=== PATIENT | male | born 1965 | race Caucasian/White ===

== ENCOUNTER 2020-09-25 11:23 | Emergency (ER) | payer MEDICAID, SELFPAY ==
[2020-09-25 11:23] VITALS: BP 128/81; PULSE 83; RESP 17; TEMP 36.6; O2SAT 98; BMI 24.5
--- NOTE | 2020-09-25 11:43 | NURSING ---
NO OLD EKGS
--- NOTE | 2020-09-25 11:50 | NURSING ---
NO OLD EKGS
--- NOTE | 2020-09-25 11:51 | EKG12_ITS ---
Test Reason : CP Blood Pressure : / mmHG Vent. Rate : 078 BPM Atrial Rate : 078 BPM P-R Int : 148 ms QRS Dur : 090 ms QT Int : 368 ms P-R-T Axes : 067 054 052 degrees QTc Int : 419 ms Normal sinus rhythm Normal ECG Confirmed by ERNA PABON, MARCO A ([id number]), editorial clerk JOELLEN JORDAN ([id number]) on 10/02/2020 9:11:10 AM Referred By: PEG Confirmed By:JAMI UMANZOR MD
--- NOTE | 2020-09-25 11:52 | ED.VIS.GEN ---
History of Present Illness Chief Complaint: Chest Pain Informant: Patient Narrative: 54-year-old male presenting with chest pain which is been intermittent for about a week. He describes it as a bloating feeling in his chest. He states he gets radiation to his left arm sometimes and it feels tingly. There is no change with exertion. He does not feel lightheaded, dizzy. He does not have any shortness of breath. No exposure to Covid?19. No fevers, chills, cough, nausea, vomiting. No history of DVT/PE. Patient states that he has a distant history of prediabetes but states that he has not seen a PCP in some time. No cardiac history and states he has never had any kind of stress test Past Medical History - Allergies and Home Meds Allergies/Adverse Reactions: Allergies No Known Allergies Allergy (Verified 09/25/20 11:23) Primary Care Physician: NOT,DEFINED [NON-STAFF] - Prior records reviewed: Yes Past Medical History: - - Prediabetic Surgical History: no surgical history, noncontributory Lives: Spouse/ Significant Other Smoking Status: Current every day smoker Alcohol: None Drugs: None Review of Systems General: Denies: Chills, Fever, Sweats Eyes: Denies: Visual changes - bilaterally, Diplopia ENT: Denies: Rhinorrhea, Sore throat Cardiovascular: Reports: Chest pain. Denies: Palpitations, Heart racing Respiratory: Denies: Dyspnea, Cough, Sputum, Dyspnea on exertion Gastrointestinal: Denies: Abdominal pain, Nausea, Vomiting Genitourinary: Denies: Dysuria, Hematuria, Frequency Musculoskeletal: Denies: Back pain, Extremity Pain Skin: Denies: Rash, Wounds Neurological: Reports: Headache, Parasthesia - Intermittent in left arm with chest pain. Psych: Denies: Depression, Anxiety, Suicidal thoughts, Suicidal ideations, -, - Physical Exam Vital Signs/Narrative: Vital Signs Temp Pulse Resp BP Pulse Ox 09/25/20 11:23 97.8 F 83 17 128/81 H 98 Inital Vital Signs reviewed: Yes General: Well nourished, No Acute Distress Head: Normocephalic, Atraumatic Eyes: Perrl, EOMI. Negative for: Pale conjunctiva ENT: Moist mucous membranes, No rhinorrhea Cardiovascular: Regular rate, Regular rhythm, No murmurs Respiratory: No distress, CTA bilaterally, Chest nontender Abdomen: Soft, Nontender Extremities: Nontender, No edema Skin: Normal color, No rash. Negative for: Cyanosis, Diaphoresis Neurological: Alert, Oriented x3, Cranial nerves II-XII grossly intact Psychological: Normal affect, Normal Mood Diagnostic/Tx/Re-eval - Rhythm Strip Rhythm Strip: Sinus Rhythm Rate: 78 - EKG Initial EKG Interpretation: Sinus Rhythm, No Acute Injury Pattern, - - WV interval 148 ms QRS duration 90 ms QTC 419 ms - Medical Decision Making Patient presents with intermittent chest pain with radiation to the left arm. He states that it does not change with exertion. Initial EKG interpreted by myself shows a normal sinus rhythm without signs of ischemic change. Patient's chest x-ray is interpreted by myself and radiologist as negative for acute process. Patient's lab work is unremarkable and initial troponin is negative. Heart score is 2. D-dimer is negative. Patient will be signed out to incoming ED doc for follow-up on delta troponin and delta EKG. I feel likely this patient will be discharged home. Impression: 1. Chest pain ED Disposition - Plan for ED Patient: Disposition: Home or Assisted Living Instructions: ED Chest Pain, Uncertain Cause Referrals: NOT,DEFINED [NON-STAFF] - Fast,Brielle, DO [NON-STAFF] -
[2020-09-25 12:03] LABS: Absolute Lymphocyte Count 2.47 X10^3/uL (0.83-4.51); Absolute Neutrophil Count 5.7 X10^3/uL (2.0-7.7); Basophil# 0.03 X10^3/uL; Basophil% 0.3 % (0-1); Eosinophil# 0.14 X10^3/uL; Eosinophils% 1.5 % (0-5); Hematocrit 43.2 % (40-54); Hemoglobin 15.4 g/dL (13.0-16.5); Lymphocyte # 2.47 X10^3/ul (4.0); Lymphocyte % 26.1 % (19-41); Mean Corp Hgb Conc 35.6 g/dL (32-36); Mean Corpuscular Hgb 34.5 pg (27.0-32.0); Mean Corpuscular Volume 96.6 fL (80-94); Mean Platelet Vol. 9.3 fl (6.2-12.0); Monocyte# 0.99 X10^3/uL; Monocyte% 10.5 % (0-10); NRBC Flagged by Analyzer 0 % (0-5); Neutrophil # 5.67 X10^3/uL (2.7-7.7); Neutrophil % 59.8 % (47-70); Platelet Count 211 K/mm3 (150-450); RBC Distribution Width CV 13.3 % (11.6-14.6); RBC Distribution Width SD 46.5 fl (35.1-43.9); Red Blood Count 4.47 M/mm3 (4.6-6.2); White Blood Count 9.5 K/mm3 (4.4-11.0)
--- NOTE | 2020-09-25 12:10 | RAD_ITS ---
STUDY: X-RAY CHEST REASON FOR EXAM: Male, 55 years old. CHEST PAIN TECHNIQUE: Single AP portable view of the chest. COMPARISON: None. FINDINGS: The lungs are clear and expanded. There is no demonstrated pleural abnormality. Normal size heart. Normal mediastinum and rikki. Normal visualized pulmonary arteries. Normal visualized aortic arch and descending thoracic aorta. Normal visualized thoracic spine. There is degenerative osteoarthritis of the bilateral shoulders. There is no demonstrated abnormality of the visualized soft tissue structures of the upper abdomen. RAD/Chest 1 View (Portable) IMPRESSION: Degenerative changes, as described above. No demonstrated acute cardiopulmonary process. Years Electronically Signed: Umesh Beaulieu, at 13:19 EST Tel , Service support ,
[2020-09-25 12:14] LABS: D-Dimer Quantitative (DVT/PE) <= 0.27 FEU/ug/m (0.27-0.49)
[2020-09-25 12:18] LABS: Anion Gap 6 (5-15); BUN 15 mg/dL (7-18); BUN/Creat Ratio 18.9 RATIO (10-20); Calcium,Total 8.6 mg/dL (8.5-10.1); Chloride 107 mmol/L (98-107); Creatinine, Serum 0.79 mg/dL (0.70-1.30); EST Glomerular Filtration Rate 108 mL/min (>60); Est Glom Filt Rate - Afr Amer 131 mL/min (>60); Estimated Creatinine Clearance 97.58 ml/min; Glucose 99 mg/dL (74-106); Potassium 3.9 mmol/L (3.5-5.1); Sodium Level 139 mmol/L (136-145)
[2020-09-25 13:18] VITALS: BP 109/72; PULSE 61; RESP 13; O2SAT 98
--- NOTE | 2020-09-25 14:45 | EKG12_ITS ---
Test Reason : REPEAT EKG Blood Pressure : / mmHG Vent. Rate : 063 BPM Atrial Rate : 063 BPM P-R Int : 138 ms QRS Dur : 096 ms QT Int : 400 ms P-R-T Axes : 044 057 047 degrees QTc Int : 409 ms Normal sinus rhythm Normal ECG Confirmed by ERNA PABON, MARCO A ([id number]), editor sound JOELLEN JORDAN ([id number]) on 10/02/2020 9:11:20 AM Referred By: ARACELIS Confirmed By:JAMI UMANZOR MD
[2020-09-25 14:46] VITALS: BP 117/84; PULSE 70; RESP 17; O2SAT 97
[2020-09-25 15:22] VITALS: BP 117/84; PULSE 84; RESP 16; O2SAT 98
== END 2020-09-25 15:23 | disposition home or self-care (01) ==
PROVIDERS: Emergency Provider Student in an Organized Health Care Education/Training Program
DX: R07.9 Chest pain, unspecified (principal); F17.200 Nicotine dependence, unspecified, uncomplicated
CPT/HCPCS: 71045; 80048; 84484; 85025; 85379; 93005; 99285; A4216

== ENCOUNTER 2020-10-03 14:45 | Outpatient (RCR) | payer MEDICAID, SELFPAY ==
--- NOTE | 2020-10-04 09:23 | HP.PTEVAL ---
Patient's Visit Information RUPINDER LEONARD is a 55 year old M referred to Physical Therapy by Dr. Romelia Yu DO with a diagnosis of CERVICAL RADICULOAPTHY. Date of Evaluation: 10/03/20 Physical Therapist: Lux Mcknight, PT, Cert MDT, OCS - Visit Plan Frequency: 2x /Week Duration: 5WEEKS Plan: PT INTERVENTIONS MANUAL THERAPY ,MODLATIES ,CERVICAL/POSTURAL EX'S AND NAKUL EX'S - Subjective This 55 y/o male presents to physical therapy with cervical radiculopathy. Patient has left and cervical radiculoapthy for 2months. Patient tearing out mobile floor slipped hit side of head . Intially ,unable to rotate neck to left with shoooting pain in left arm. Eventually,seen DR because developing chest pain ER ,-for heart problems. Patient also seen family DR recommended PT and had x-rays. Prescribed muscle relaxer predisone. Aggraveting factors ,sitting ,bending neck and lookin up. Aleviating factors MEDS ,rest. Patient has difficulty sleeping due to pain. Patient denies GODDARD/tinnutus/nausea. Patient c/o parathesia/tingling to fingers. Locatio left UT ,deltoid to forearm. Patient condtion affects QOL and job demands. Patient off 2 weeks from work. Patient condtion affects ability to return to work full duty. SOCAIL: danette. VOCATION: [employer] - Pain Left Neck Pain Intensity (Out of 10): 7 Pain Intensity Range: 10 Left Elbow Pain Intensity (Out of 10): 8 - Objective POSTURE: mild foward posture. PALAPTION: tender UT/levator left. NEURO: parathesia/tingling left arm,reflexes C5-6-7 1/3 ,mytomes C5-6-7 weakness. HOT OILER STRENGTH DYNOMETER.40 # left ,110# right. CERVICAL ROM: min loss flexion pain ,extension mod loss pain UT,retraction mod loss pain UT,lateral flexion/rotation mod loss pain UT -shoulder to left ,mild to right. AROM: BUE WFL. MMT:left UE 4-/5 EXCEPT deltoid 3+/5 ,RUE 4-/5 - Special Tests C/S Radiculapathy - Left Upper limb tension test: Positive C/S Radiculapathy - Right Upper limb tension test: Negative C/S Radiculapathy - Left Spurlings: Positive C/S Radiculapathy - Right Spurlings: Negative C/S Radiculapathy - Left Cervical distraction: Positive C/S Radiculapathy - Right Cervical distraction: Negative Sharp Chris: Negative Vertebral Artery Test: Negative Alar Ligament Test: Negative - Goals Goal 1:: I with HEP Goal Time Frame: 4-6 Weeks Goal 2:: Patient improve posture for ADL'S Goal Time Frame: 4-6 Weeks Goal 3:: Patient to improve cervical ROM for function of recovery Goal Time Frame: 4-6 Weeks Goal 4:: Patient decrease cervical radiculopathy by 50% or > to improve function Goal Time Frame: 4-6 Weeks Goal 5:: Patient improve LUE by 4/5 and medical intern strength 80# Goal Time Frame: 4-6 Weeks Goal 6:: Patient to improve neck owestry score by 5 points or> to impove function. Goal Time Frame: 4-6 Weeks - Rehabilitation Potential Physical Therapy Diagnosis: This patient has cervical pain with radiculopathy with symptoms in left arm with pain with ROM especially to left ,mytome weakness,medical intern strength weak,+ spurrling thus affects ADL's and housework tasks and function thus benifit from skilled PT Rehabilitation Potential: Good - Anticipated Interventions Patient/Client Instruction: Educate patient on: Condition, Plan of Care For the Purpose of:: To decrease pain, To increase ROM, To improve muscle performance and motor function, To improve ability to perform ADL's, To increase tolerance to activity/condition/position, To improve ability of physical actions for home/community/work/leisure, To improve health of tissue, To decrease soft tissue restriction, To increase flexibility/ROM Therapeutic Exercise to Include: Strength training, Postural training, Flexibilty training, Active ROM, Nakul Exercises For the Purpose of:: To decrease pain, To increase ROM, To improve muscle performance and motor function, To improve ability to perform ADL's, To increase tolerance to activity/condition/position, To improve ability of physical actions for home/community/work/leisure, To improve health of tissue, To decrease soft tissue restriction, To increase flexibility/ROM, To reduce risk of recurrence, To improve ability to perform tasks related to life management Manual Therapy Techniques to Include: Mobilization For the Purpose of:: To decrease pain, To increase ROM, To improve nutrient delivery to tissue, To increase oxygenation perfusion, To decrease soft tissue restriction, To increase flexibility/ROM TENS: Yes IF ES: Yes Cryotherapy (ice pack, ice massage): Yes Thermo therapy (hot pack): Yes Ultrasound (thermal/non thermal): Yes For the Purpose of:: To decrease pain, To increase ROM, To improve health of tissue, To decrease soft tissue restriction, To increase flexibility/ROM Thank you for the opportunity to evaluate your patient. For Medicare and Medicare HMO plans, please review the plan of care and approve it. It will need to be FAXED BACK to us at [phone] for Medicare purposes. For Medicare only, by signing this I certify the plan of care. Please let me know if there are questions or concerns regarding this plan of care. Physician Signature: Date:
--- NOTE | 2020-10-04 09:33 | HP.PTEVAL ---
Patient's Visit Information RUPINDER LEONARD is a 55 year old M referred to Physical Therapy by Dr. Romelia Yu DO with a diagnosis of CERVICAL RADICULOAPTHY. Date of Evaluation: 10/03/20 Physical Therapist: Lux Mcknight, PT, Cert MDT, OCS - Visit Plan Frequency: 2x /Week Duration: 5WEEKS Plan: PT INTERVENTIONS MANUAL THERAPY ,MODLATIES ,CERVICAL/POSTURAL EX'S AND NAKUL EX'S - Subjective This 55 y/o male presents to physical therapy with cervical radiculopathy. Patient has left and cervical radiculoapthy for 2months. Patient tearing out mobile floor slipped hit side of head . Intially ,unable to rotate neck to left with shoooting pain in left arm. Eventually,seen DR because developing chest pain ER ,-for heart problems. Patient also seen family DR recommended PT and had x-rays. Prescribed muscle relaxer predisone. Aggraveting factors ,sitting ,bending neck and lookin up. Aleviating factors MEDS ,rest. Patient has difficulty sleeping due to pain. Patient denies GODDARD/tinnutus/nausea. Patient c/o parathesia/tingling to fingers. Locatio left UT ,deltoid to forearm. Patient condtion affects QOL and job demands. Patient off 2 weeks from work. Patient condtion affects ability to return to work full duty. SOCAIL: danette. VOCATION: [employer] - Pain Left Neck Pain Intensity (Out of 10): 7 Pain Intensity Range: 10 Left Elbow Pain Intensity (Out of 10): 8 - Objective POSTURE: mild foward posture. PALAPTION: tender UT/levator left. NEURO: parathesia/tingling left arm,reflexes C5-6-7 1/3 ,mytomes C5-6-7 weakness. IRISH MOSS GATHERER STRENGTH DYNOMETER.40 # left ,110# right. CERVICAL ROM: min loss flexion pain ,extension mod loss pain UT,retraction mod loss pain UT,lateral flexion/rotation mod loss pain UT -shoulder to left ,mild to right. AROM: BUE WFL. MMT:left UE 4-/5 EXCEPT deltoid 3+/5 ,RUE 4-/5 - Special Tests C/S Radiculapathy - Left Upper limb tension test: Positive C/S Radiculapathy - Right Upper limb tension test: Negative C/S Radiculapathy - Left Spurlings: Positive C/S Radiculapathy - Right Spurlings: Negative C/S Radiculapathy - Left Cervical distraction: Positive C/S Radiculapathy - Right Cervical distraction: Negative Sharp Chris: Negative Vertebral Artery Test: Negative Alar Ligament Test: Negative Cervical Sitting: Protrusion - Mechanical Response: No effect Cervical Sitting: Protrusion - Symptoms During Testing: Increases Cervical Sitting: Protrusion - Symptoms After Testing: Worse Comments:: LEFT UT Cervical Sitting: Retraction - Mechanical Response: No effect Cervical Sitting: Retraction - Symptoms During Testing: Increases Cervical Sitting: Retraction - Symptoms After Testing: No worse Comments:: SHOULDER Cervical Sitting: Retraction-Extension - Mechanical Response: No effect Cerv Sitting: Retraction-Extension - Symptoms During Testing: Increases Cerv Sitting: Retraction-Extension - Symptoms After Testing: Worse Comments:: LEFT SHOULDER Cervical Sitting: Sidebend Right - Mechanical Response: No effect Cervical Sitting: Sidebend Right - Symptoms During Testing: Increases Cervical Sitting: Sidebend Right - Symptoms After Testing: No worse Cervical Sitting: Sidebend Left - Mechanical Response: No effect Cervical Sitting: Sidebend Left - Symptoms During Testing: Increases Cervical Sitting: Sidebend Left - Symptoms After Testing: Worse Cervical Sitting: Rotation Right - Mechanical Response: No effect Cervical Sitting: Rotation Right - Symptoms During Testing: Increases Cervical Sitting: Rotation Right - Symptoms After Testing: No worse Cervical Sitting: Rotation Left - Mechanical Response: No effect Cervical Sitting: Rotation Left - Symptoms During Testing: Increases Cervical Sitting: Rotation Left - Symptoms After Testing: No worse Cervical Sitting: Flexion - Mechanical Response: No effect Cervical Sitting: Flexion - Symptoms During Testing: Increases Cervical Sitting: Flexion - Symptoms After Testing: Worse - Goals Goal 1:: I with HEP Goal Time Frame: 4-6 Weeks Goal 2:: Patient improve posture for ADL'S Goal Time Frame: 4-6 Weeks Goal 3:: Patient to improve cervical ROM for function of recovery Goal Time Frame: 4-6 Weeks Goal 4:: Patient decrease cervical radiculopathy by 50% or > to improve function Goal Time Frame: 4-6 Weeks Goal 5:: Patient improve LUE by 4/5 and hydrometallurgical engineer strength 80# Goal Time Frame: 4-6 Weeks Goal 6:: Patient to improve neck owestry score by 5 points or> to impove function. Goal Time Frame: 4-6 Weeks - Rehabilitation Potential Physical Therapy Diagnosis: This patient has cervical pain with radiculopathy with symptoms in left arm with pain with ROM especially to left ,mytome weakness,hydrometallurgical engineer strength weak,+ spurrling thus affects ADL's and housework tasks and function thus benifit from skilled PT Rehabilitation Potential: Good - Anticipated Interventions Patient/Client Instruction: Educate patient on: Condition, Plan of Care For the Purpose of:: To decrease pain, To increase ROM, To improve muscle performance and motor function, To improve ability to perform ADL's, To increase tolerance to activity/condition/position, To improve ability of physical actions for home/community/work/leisure, To improve health of tissue, To decrease soft tissue restriction, To increase flexibility/ROM Therapeutic Exercise to Include: Strength training, Postural training, Flexibilty training, Active ROM, Nakul Exercises For the Purpose of:: To decrease pain, To increase ROM, To improve muscle performance and motor function, To improve ability to perform ADL's, To increase tolerance to activity/condition/position, To improve ability of physical actions for home/community/work/leisure, To improve health of tissue, To decrease soft tissue restriction, To increase flexibility/ROM, To reduce risk of recurrence, To improve ability to perform tasks related to life management Manual Therapy Techniques to Include: Mobilization For the Purpose of:: To decrease pain, To increase ROM, To improve nutrient delivery to tissue, To increase oxygenation perfusion, To decrease soft tissue restriction, To increase flexibility/ROM TENS: Yes IF ES: Yes Cryotherapy (ice pack, ice massage): Yes Thermo therapy (hot pack): Yes Ultrasound (thermal/non thermal): Yes For the Purpose of:: To decrease pain, To increase ROM, To improve health of tissue, To decrease soft tissue restriction, To increase flexibility/ROM Thank you for the opportunity to evaluate your patient. For Medicare and Medicare HMO plans, please review the plan of care and approve it. It will need to be FAXED BACK to us at [phone] for Medicare purposes. For Medicare only, by signing this I certify the plan of care. Please let me know if there are questions or concerns regarding this plan of care. Physician Signature: Date:
--- NOTE | 2021-03-27 12:44 | HP.PT.NRP ---
RUPINDER LEONARD was seen in my office for initial evaluation on 10/03/20. The following Plan of Care was established for this patient: Initial Frequency: 2x /Week Initial Duration: 5WEEKS Patient/Client Instruction: Educate patient on: Condition, Plan of Care For the Purpose of:: To decrease pain, To increase ROM, To improve muscle performance and motor function, To improve ability to perform ADL's, To increase tolerance to activity/condition/position, To improve ability of physical actions for home/community/work/leisure, To improve health of tissue, To decrease soft tissue restriction, To increase flexibility/ROM Therapeutic Exercise to Include: Strength training, Postural training, Flexibilty training, Active ROM, Nicolas Exercises For the Purpose of:: To decrease pain, To increase ROM, To improve muscle performance and motor function, To improve ability to perform ADL's, To increase tolerance to activity/condition/position, To improve ability of physical actions for home/community/work/leisure, To improve health of tissue, To decrease soft tissue restriction, To increase flexibility/ROM, To reduce risk of recurrence, To improve ability to perform tasks related to life management Manual Therapy Techniques to Include: Mobilization For the Purpose of:: To decrease pain, To increase ROM, To improve nutrient delivery to tissue, To increase oxygenation perfusion, To decrease soft tissue restriction, To increase flexibility/ROM TENS: Yes IF ES: Yes Cryotherapy (ice pack, ice massage): Yes Thermo therapy (hot pack): Yes Ultrasound (thermal/non thermal): Yes For the Purpose of:: To decrease pain, To increase ROM, To improve health of tissue, To decrease soft tissue restriction, To increase flexibility/ROM This patient was last seen in our office . Pertinent comments regarding their Physical therapy will appear below: Patient seen for PT EVAL only and RTD At this point I will be discontinuing this patient from physical therapy. I would be happy to see this patient again in the future if found appropriate by the physician. Thank you! Lux Mcknight, PT, Cert MDT, OCS
== END 2020-10-03 19:00 | disposition home or self-care (01) ==
LOC: PT 14:45
PROVIDERS: PCP Family Medicine; Referring Provider Internal Medicine; Visit Provider Internal Medicine
DX: M54.12 Radiculopathy, cervical region (principal)
CPT/HCPCS: 97035; 97110; 97162